=== PATIENT | male | born 1935 | race Caucasian/White ===

== ENCOUNTER → 2018-07-10 | Outpatient (CLI) | payer MEDICARE | END | disposition home or self-care (01) | LOC: PETCFH 11:58 | PROVIDERS: ATTEND Internal Medicine Hematology & Oncology | DX: D37.030 Neoplasm of uncertain behavior of the parotid salivary glands (principal) | CPT/HCPCS: 78816; A9552 ==

== ENCOUNTER → 2018-07-28 | Outpatient (CLI) | payer OTHER | END | disposition home or self-care (01) | LOC: ROC 07:20 | PROVIDERS: ATTEND Radiology Radiation Oncology | DX: Z02.9 Encounter for administrative examinations, unspecified (principal) ==

== ENCOUNTER 2018-08-11 09:18 | Outpatient (CLI) | payer OTHER | END 2018-08-11 23:59 | disposition home or self-care (01) | LOC: ROC 09:18 | PROVIDERS: ATTEND Radiology Radiation Oncology | DX: Z02.9 Encounter for administrative examinations, unspecified (principal) ==

== ENCOUNTER → 2018-09-01 | Outpatient (CLI) | payer OTHER | END | disposition home or self-care (01) | LOC: ROC 13:44 | PROVIDERS: ATTEND Radiology Radiation Oncology | DX: Z08 Encounter for follow-up examination after completed treatment for malignant neoplasm (principal); C77.0 Secondary and unspecified malignant neoplasm of lymph nodes of head, face and neck | CPT/HCPCS: 99212; G0463 ==

== ENCOUNTER 2018-12-01 09:42 | Outpatient (CLI) | payer OTHER | END 2018-12-01 23:59 | disposition home or self-care (01) | LOC: ROC 09:42 | PROVIDERS: ATTEND Radiology Radiation Oncology | DX: Z02.9 Encounter for administrative examinations, unspecified (principal) ==

== ENCOUNTER 2019-02-24 13:34 | Outpatient (CLI) | payer OTHER | END 2019-02-24 23:59 | disposition home or self-care (01) | LOC: PETCFH 13:34 | PROVIDERS: ATTEND Nurse Practitioner Family | DX: R91.8 Other nonspecific abnormal finding of lung field (principal); C77.0 Secondary and unspecified malignant neoplasm of lymph nodes of head, face and neck; I35.0 Nonrheumatic aortic (valve) stenosis; N20.0 Calculus of kidney; Z98.890 Other specified postprocedural states | CPT/HCPCS: 78815; A9552 ==

== ENCOUNTER 2019-03-04 08:18 | Outpatient (CLI) | payer OTHER | END 2019-03-04 23:59 | disposition home or self-care (01) | LOC: ROC 08:18 | PROVIDERS: ATTEND Radiology Radiation Oncology | DX: C77.0 Secondary and unspecified malignant neoplasm of lymph nodes of head, face and neck (principal) | CPT/HCPCS: 99212; G0463 ==